=== PATIENT | male | born 1965 | race Caucasian/White ===

== ENCOUNTER 2018-05-19 14:04 | Inpatient (IN) | payer OTHER ==
[2018-05-19] MEDS ORDERED: MORPHINE SULFATE 10 MG/ML INJ IV ONE (14:46)
--- NOTE | 2018-05-19 14:51 | ER Document Report ---
ED Medical Screen (RME) - General Chief Complaint: Finger Injury Stated Complaint: FINGER INJURY Time Seen by Provider: 05/19/18 14:34 Mode of Arrival: Ambulatory Information source: Patient Notes: 53-year-old male presents emergency department for left middle finger evaluation. Patient is one of Dr. Sexton's patients. He states that he injured his finger on a platen grinder and has been seeing Dr. Sexton. Over the last 2 weeks he has been having increased pain. Over the last couple of days the fingers become hot, swollen, and draining serosanguineous material. Dr. Sexton called and would like to know when the patient is in the ED. He requests a CBC, sed rate, and CRP be odered. I have greeted and performed a rapid initial assessment of this patient. A comprehensive ED assessment and evaluation of the patient, analysis of test results and completion of the medical decision making process will be conducted by additional ED providers. PHYSICAL EXAMINATION: GENERAL: Well-appearing, well-nourished and in no acute distress. HEAD: Atraumatic, normocephalic. EYES: Pupils equal round extraocular movements intact, conjunctiva are normal. ENT: Nares patent NECK: Normal range of motion LUNGS: No respiratory distress Musculoskeletal: Normal range of motion. L middle finger erythematous, swollen, warm to touch, and painful to palpation. 2+ radial pulse. NEUROLOGICAL: Normal speech, normal gait. TRAVEL OUTSIDE OF THE [place] IN LAST 30 DAYS: No - Related Data Allergies/Adverse Reactions: No Known Allergies Allergy (Verified 05/19/18 14:05) Physical Exam - Vital signs Vitals: Temp Pulse Resp BP Pulse Ox 97.8 F 60 20 133/66 H 100 05/19/18 14:12 05/19/18 14:12 05/19/18 14:12 05/19/18 14:12 05/19/18 14:12 Course - Vital Signs Vital signs: Temp Pulse Resp BP Pulse Ox 97.8 F 60 20 133/66 H 100 05/19/18 14:12 05/19/18 14:12 05/19/18 14:12 05/19/18 14:12 05/19/18 14:12
[2018-05-19 15:12] LABS: ABSOLUTE BASOPHILS # (AUTO) 0.1 10^3/uL (0.0-0.2); ABSOLUTE EOSINOPHILS # (AUTO) 0.1 10^3/uL (0.0-0.6); ABSOLUTE LYMPHOCYTES (AUTO) 3.9 10^3/uL (0.5-4.7); ABSOLUTE MONOCYTES (AUTO) 0.6 10^3/uL (0.1-1.4); ABSOLUTE NEUT (AUTO) 4.9 10^3/uL (1.7-8.2); BASOPHILS % (AUTO) 1.4 % (0-2); EOSINOPHILS % (AUTO) 1.4 % (0-6); HEMATOCRIT 44.4 % (37.9-51.0); HEMOGLOBIN 15.4 g/dL (13.5-17.0); LYMPHOCYTES % (AUTO) 40.2 % (13-45); MEAN CORPUSCULAR HGB CONC 34.6 g/dL (32.0-36.0); MEAN CORPUSCULAR VOLUME 92 fl (80-97); MONOCYTES % (AUTO) 6.1 % (3-13); PLATELET COUNT 385 10^3/uL (150-450); RED CELL DISTRIBUTION WIDTH 15.4 % (11.5-14.0); SEGMENTED NEUTROPHILS % (AUTO) 50.9 % (42-78); TOTAL CELLS COUNTED % (AUTO) 100 %; WHITE BLOOD COUNT 9.7 10^3/uL (4.0-10.5)
[2018-05-19] MEDS ORDERED: LIDOCAINE 1% INJ (10 MG/ML) 10 ML MDV INJ ONE (15:31)
--- NOTE | 2018-05-19 15:42 | PDOC H&P ---
History of Present Illness Patient complains of: Pain left middle finger History of Present Illness: MUNIRA SULLIVAN is a 53 year old male who sustained a work-related injury to his left middle finger when a stand grinder cut the volar surface of his middle finger. He underwent nerve repair with zone I FDP repair. Patient had been doing well and progressing in occupational therapy appropriately until he developed pain approximately 1 week ago. He then follow-up in the office later that week once again with worsening pain and redness patient was started on p.o. antibiotics but instructed if his pain did not improve to immediately present to the emergency room. Patient presents today and states he has noticed increasing swelling and pain in the digit. He has been taking the Bactrim as recommended. Denies any discomfort in his forearm or palm. Denies fever chills or sweats. Past Surgical History Past Surgical History: Reports: Appendectomy Social History Smoking Status: Current Every Day Smoker Family History Parental Family History Reviewed: No Children Family History Reviewed: No Sibling(s) Family History Reviewed.: No Medication/Allergy Allergies/Adverse Reactions: No Known Allergies Allergy (Verified 05/19/18 14:05) Review of Systems Constitutional: ABSENT: chills, fever(s), headache(s), weight gain, weight loss Eyes: ABSENT: visual disturbances Ears: ABSENT: hearing changes Cardiovascular: ABSENT: chest pain, dyspnea on exertion, edema, orthropnea, palpitations Respiratory: ABSENT: cough, hemoptysis Gastrointestinal: ABSENT: abdominal pain, constipation, diarrhea, hematemesis, hematochezia, nausea, vomiting Genitourinary: ABSENT: dysuria, hematuria Musculoskeletal: PRESENT: as per HPI Integumentary: ABSENT: rash, wounds Neurological: ABSENT: abnormal gait, abnormal speech, confusion, dizziness, focal weakness, syncope Psychiatric: ABSENT: anxiety, depression, homidical ideation, suicidal ideation Endocrine: ABSENT: cold intolerance, heat intolerance, menstrual abnormalities, polydipsia, polyuria Hematologic/Lymphatic: ABSENT: easy bleeding, easy bruising, lymphadenopathy Physical Exam Vital Signs: Temp Pulse Resp BP Pulse Ox 97.8 F 60 20 133/66 H 100 05/19/18 14:12 05/19/18 14:12 05/19/18 14:12 05/19/18 14:12 05/19/18 14:12 Intake & Output 05/18/18 05/19/18 05/20/18 06:59 06:59 06:59 Weight 80.2 kg General appearance: PRESENT: no acute distress, well-developed, well-nourished Head exam: PRESENT: atraumatic, normocephalic Eye exam: PRESENT: conjunctiva pink, EOMI, PERRLA. ABSENT: scleral icterus Ear exam: PRESENT: normal external ear exam Mouth exam: PRESENT: moist, tongue midline Teeth exam: PRESENT: poor dentation Neck exam: PRESENT: full ROM. ABSENT: carotid bruit, JVD, lymphadenopathy, thyromegaly Respiratory exam: PRESENT: unlabored Cardiovascular exam: PRESENT: RRR. ABSENT: diastolic murmur, rubs, systolic murmur Pulses: PRESENT: normal dorsalis pedis pul, +2 pedal pulses bilateral Vascular exam: PRESENT: normal capillary refill GI/Abdominal exam: PRESENT: normal bowel sounds, soft. ABSENT: distended, guarding, mass, organolmegaly, rebound, tenderness Rectal exam: PRESENT: deferred Musculoskeletal exam: PRESENT: other - Left middle finger: Desquamation along the distal aspect of the digit. Exquisite tenderness to palpation on DIP joint with skin breakdown radially. Small amount of purulent drainage noted and expressible. No tenderness along the flexor sheath at the middle phalanx, proximal phalanx or A1 rozina. Flicker of FDP function of the DIP joint. No pain with PIP joint range of motion. Patient lacks two-point discrimination along the distal digit which is unchanged. Cap refill less than 2 seconds. Normal skin turgor. Neurological exam: PRESENT: alert, awake, oriented to person, oriented to place, oriented to time, oriented to situation, CN II-XII grossly intact. ABSENT: motor sensory deficit Psychiatric exam: PRESENT: appropriate affect, normal mood. ABSENT: homicidal ideation, suicidal ideation Skin exam: PRESENT: dry, intact, warm. ABSENT: cyanosis, rash Results Laboratory Results: 05/19/18 14:58 05/19/18 14:58 05/19/18 05/19/18 14:58 14:58 WBC 9.7 RBC 4.80 Hgb 15.4 Hct 44.4 MCV 92 MCH 32.0 MCHC 34.6 RDW 15.4 H Plt Count 385 Seg Neutrophils % 50.9 Lymphocytes % 40.2 Monocytes % 6.1 Eosinophils % 1.4 Basophils % 1.4 Absolute Neutrophils 4.9 Absolute Lymphocytes 3.9 Absolute Monocytes 0.6 Absolute Eosinophils 0.1 Absolute Basophils 0.1 Sodium Cancelled Potassium Cancelled Chloride Cancelled Carbon Dioxide Cancelled Anion Gap Cancelled BUN Cancelled Creatinine Cancelled Est GFR ( Amer) Cancelled Est GFR (Non-Af Amer) Cancelled Glucose Cancelled Calcium Cancelled Total Bilirubin Cancelled AST Cancelled ALT Cancelled Alkaline Phosphatase Cancelled C-Reactive Protein Cancelled Total Protein Cancelled Albumin Cancelled Assessment & Plan - Diagnosis (1) Abscess of finger of left hand Is this a current diagnosis for this admission?: Yes Plan: Unfortunately patient had been seeing improvement after a fairly contaminated wound from a stand grinder injury at work but then has now developed infection with underlying abscess as noted by the active drainage. Given the distal nature of the digit I feel bedside irrigation and debridement can be performed under local anesthesia. Also given an knowing the fact he had significant contamination at the original injury there is certainly the possibility of underlying distal phalanx osteomyelitis but up to this point all radiographs have not demonstrated evidence of lytic lesion however there was questionable cortical irregularity which may be posttraumatic in nature. There is no evidence of flexor tenosynovitis and thus I feel is reasonable to proceed with bedside procedure with nail removal and irrigation and debridement. Risk and benefits of the surgical procedure have been explained to the patient including neurovascular risk, recurrent infection necessitating repeat operative intervention. Patient is verbalized understanding and consented for the surgical procedure. Patient will be admitted for IV antibiotics until clinical improvement is noted.
[2018-05-19] MEDS ORDERED: ONDANSETRON HCL INJ/PF 4 MG/2 ML SDV IV PRN (15:43)
[2018-05-19 15:53] LABS: ERYTHROCYTE SEDIMENTATION RATE 18 mm/hr (0-20)
[2018-05-19] MEDS ORDERED: AMPICILLIN SOD/SULBACTAM 3 GM VIAL IV ONE (16:02)
--- NOTE | 2018-05-19 16:04 | ER Document Report ---
ED General - General Chief Complaint: Finger Injury Stated Complaint: FINGER INJURY Time Seen by Provider: 05/19/18 14:34 Mode of Arrival: Ambulatory Notes: Dr. Sexton's Ortho note: MUNIRA SULLIVAN is a 53 year old male who sustained a work-related injury to his left middle finger when a glaze grinder cut the volar surface of his middle finger. He underwent nerve repair with zone I FDP repair. Patient had been doing well and progressing in occupational therapy appropriately until he developed pain approximately 1 week ago. He then follow-up in the office later that week once again with worsening pain and redness patient was started on p.o. antibiotics but instructed if his pain did not improve to immediately present to the emergency room. Patient presents today and states he has noticed increasing swelling and pain in the digit. He has been taking the Bactrim as recommended. Denies any discomfort in his forearm or palm. Denies fever chills or sweats. My HPI: Patient had already been seen by the [facility] provider. Orthopedics Dr. Sexton had also already seen the patient and put in admission orders. My assessment was on changed from Dr. Sexton's. TRAVEL OUTSIDE OF THE [place] IN LAST 30 DAYS: No - Related Data Allergies/Adverse Reactions: No Known Allergies Allergy (Verified 05/19/18 14:05) Past Medical History - General Information source: Patient - Social History Smoking Status: Current Every Day Smoker Chew tobacco use (# tins/day): No Frequency of alcohol use: None Drug Abuse: None Family History: Reviewed & Not Pertinent Patient has suicidal ideation: No Patient has homicidal ideation: No Renal/ Medical History: Denies: Hx Peritoneal Dialysis Past Surgical History: Reports: Hx Appendectomy Review of Systems - Review of Systems Constitutional: No symptoms reported EENT: No symptoms reported Cardiovascular: No symptoms reported Respiratory: No symptoms reported Gastrointestinal: No symptoms reported Genitourinary: No symptoms reported Male Genitourinary: No symptoms reported Musculoskeletal: See HPI Skin: See HPI Hematologic/Lymphatic: No symptoms reported Neurological/Psychological: No symptoms reported Physical Exam - Vital signs Vitals: Temp Pulse Resp BP Pulse Ox 97.8 F 60 20 133/66 H 100 05/19/18 14:12 05/19/18 14:12 05/19/18 14:12 05/19/18 14:12 05/19/18 14:12 - Notes Notes: GENERAL: Alert, interacts well. No acute distress. HEAD: Normocephalic, atraumatic. EYES: Pupils equal, round, and reactive to light. Extraocular movements intact. ENT: Oral mucosa moist, tongue midline. NECK: Full range of motion. Supple. Trachea midline. LUNGS: Clear to auscultation bilaterally, no wheezes, rales, or rhonchi. No respiratory distress. HEART: Regular rate and rhythm. No murmur ABDOMEN: Soft, non-tender. Non-distended. Bowel sounds present in all 4 quadrants. EXTREMITIES: Moves all 4 extremities spontaneously. No edema, normal radial and dorsalis pedis pulses bilaterally. No cyanosis. Left middle finger: Desquamation along the distal aspect of the digit. tenderness to palpation on DIP joint with skin breakdown radially. Small amount of purulent drainage noted and expressible. Cap refill less than 2 seconds. Normal skin turgor. BACK: no cervical, thoracic, lumbar midline tenderness. No saddle anesthesia, normal distal neurovascular exam. NEUROLOGICAL: Alert and oriented x3. Normal speech. cranial nerves II through XII grossly intact PSYCH: Normal affect, normal mood. SKIN: Warm, dry. Course - Re-evaluation Re-evalutation: Case discussed with orthopedics Dr. Sexton who has already seen the patient in the emergency department and placed admit orders into the computer. Patient admitted to his service for IV antibiotics. Patient is stable for admission. - Vital Signs Vital signs: Temp Pulse Resp BP Pulse Ox 98.0 F 72 18 106/61 94 05/19/18 23:30 05/19/18 23:30 05/19/18 23:30 05/19/18 23:30 05/19/18 23:30 - Laboratory Result Diagrams: 05/20/18 04:38 05/19/18 15:50 Laboratory results interpreted by me: 05/19/18 05/19/18 14:58 15:50 RDW 15.4 H ALT 20 L Discharge - Discharge Clinical Impression: Abscess of finger of left hand Condition: Stable Disposition: ADMITTED INPATIENT Admitting Provider: Orthopedics Dr. Sexton Unit Admitted: Medical Floor
[2018-05-19 16:27] LABS: ALANINE AMINOTRANSFERASE 20 U/L (21-72); ALBUMIN 4.6 g/dL (3.5-5.0); ALKALINE PHOSPHATASE 88 U/L (38-126); ANION GAP 11 (5-19); ASPARTATE AMINO TRANSFERASE 19 U/L (17-59); BILIRUBIN,DIRECT 0.2 mg/dL (0.0-0.4); BILIRUBIN,TOTAL 0.2 mg/dL (0.2-1.3); BLOOD UREA NITROGEN 12 mg/dL (7-20); C-REACTIVE PROTEIN 6.7 mg/L (<10.0); CALCIUM 9.7 mg/dL (8.4-10.2); CARBON DIOXIDE 27 mmol/L (22-30); CHLORIDE 103 mmol/L (98-107); GLUCOSE 104 mg/dL (75-110); POTASSIUM 4.3 mmol/L (3.6-5.0); SODIUM 141.2 mmol/L (137-145); TOTAL PROTEIN 7.6 g/dL (6.3-8.2)
--- NOTE | 2018-05-19 16:58 | Operative Report ---
Operative Report DATE OF SURGERY: 05/19/18 PREOPERATIVE DIAGNOSIS: Abscess left middle finger status post flexor tendon la ceration with repair POSTOPERATIVE DIAGNOSIS: Same OPERATION: Irrigation debridement left middle finger abscess including soft tissue no involvement of bone. SURGEON: BRUNA MCGRAW ANESTHESIA: Local COMPLICATIONS: None ESTIMATED BLOOD LOSS: Minimal PROCEDURE: Indication for above procedure: 53-year-old male who sustained a open wound to the left middle finger from a work-related injury from a drill grinder. Patient sustained FDP laceration along with digital nerve involvement. Patient underwent successful operative procedure and had been doing well until he developed redness swelling and pain. His symptoms worsened over the past 36 hours and thus I directed him to the emergency room. After evaluation and treatment as per H&P decision was made to proceed with bedside irrigation and debridement. Procedure In Detail: Digital block was performed with 1% lidocaine without epinephrine 10 cc once adequately anesthetized hand was prepped with Betadine and draped in a sterile fashion. Digital tourniquet was placed. Patient given IV Unasyn once cultures obtained Open wound along the radial aspect of the DIP joint was then opened and small amounts of purulence were encountered. Cultures obtained. Blunt dissection was performed with a Deer elevator no tracking was noted deep into the joint or into the flexor sheath. No apparent bone involvement. Any nonviable soft tissue was excised. Wound was copiously irrigated with normal saline and Betadine. A Deer elevator was then placed along the nail plate superficially and then deep to the nail plate above the sternal matrix with special care to avoid disruption of the germinal matrix. Nail was then removed. Retained Prolene suture was removed. There is no evidence of purulence sitting within the paronychia. Previous radial wound was once again copiously irrigated with normal saline. elevator was placed above and below the flexor tendon to perform a localized tendon lysis. At completion patient had improved DIP joint range of motion 0 degrees - 20 degrees PIP joint range of motion 0 degrees - 80 degrees. Adaptic was placed beneath the nail fold to avoid adhesions and promote no growth healing. Wet-to-dry dressing was placed along the wound site and a Rich loosely applied. Patient had normal capillary refill once the digital tourniquet was removed. Patient tolerated procedure well.
[2018-05-19] MEDS: OXYCODONE-ACETAMINOPHEN 5-325 MG TABLET PO PRN (17:59)
[2018-05-19] MEDS ORDERED: AMPICILLIN SOD/SULBACTAM 3 GM VIAL IV SCH (18:00)
[2018-05-19] MEDS: MORPHINE SULFATE 10 MG/ML INJ IV PRN (20:51)
[2018-05-19] MEDS: AMPICILLIN SODIUM/SULBACTAM NA 3 GM in NORMAL SALINE 100 ML IV SCH (20:55)
[2018-05-20] MEDS: CIPROFLOXACIN 400 MG/D5W RTU 400 MG/200 ML RTUPB IV SCH ×3 (00:42→21:45)
[2018-05-20] MEDS: OXYCODONE-ACETAMINOPHEN 5-325 MG TABLET PO PRN ×3 (00:43→17:38)
[2018-05-20] MEDS: AMPICILLIN SODIUM/SULBACTAM NA 3 GM in NORMAL SALINE 100 ML IV SCH ×4 (02:11→17:36)
[2018-05-20] MEDS: MORPHINE SULFATE 10 MG/ML INJ IV PRN ×3 (02:16→14:11)
[2018-05-20 04:56] LABS: ABSOLUTE BASOPHILS # (AUTO) 0.1 10^3/uL (0.0-0.2); ABSOLUTE EOSINOPHILS # (AUTO) 0.2 10^3/uL (0.0-0.6); ABSOLUTE LYMPHOCYTES (AUTO) 3.2 10^3/uL (0.5-4.7); ABSOLUTE NEUT (AUTO) 10.3 10^3/uL (1.7-8.2); BASOPHILS % (AUTO) 0.9 % (0-2); EOSINOPHILS % (AUTO) 1.3 % (0-6); HEMATOCRIT 42.8 % (37.9-51.0); HEMOGLOBIN 14.5 g/dL (13.5-17.0); LYMPHOCYTES % (AUTO) 21.4 % (13-45); MEAN CORPUSCULAR HEMOGLOBIN 31.2 pg (27.0-33.4); MEAN CORPUSCULAR HGB CONC 33.8 g/dL (32.0-36.0); MEAN CORPUSCULAR VOLUME 92 fl (80-97); PLATELET COUNT 357 10^3/uL (150-450); RED BLOOD COUNT 4.64 10^6/uL (4.35-5.55); RED CELL DISTRIBUTION WIDTH 15.5 % (11.5-14.0); SEGMENTED NEUTROPHILS % (AUTO) 69.4 % (42-78); TOTAL CELLS COUNTED % (AUTO) 100 %; WHITE BLOOD COUNT 14.8 10^3/uL (4.0-10.5)
[2018-05-20] MEDS: GABAPENTIN 300 MG CAPSULE PO SCH ×3 (09:52→17:38)
[2018-05-20] MEDS: NICOTINE 21 MG/24 HR PATCH.TD24 TD SCH (09:52)
--- NOTE | 2018-05-20 15:25 | PDOC PROGRESS REPORT ---
Subjective Progress Note for:: 05/20/18 Subjective:: Patient states the redness and swelling has improved but still has some soreness. Denies fever chills or sweats. Pain currently controlled. Reason For Visit: ABSCESS LEFT MIDDLE FINGER Physical Exam Vital Signs: Temp Pulse Resp BP Pulse Ox 98.1 F 71 12 113/73 96 05/20/18 11:29 05/20/18 11:29 05/20/18 11:29 05/20/18 11:29 05/20/18 11:29 Intake & Output 05/19/18 05/20/18 05/21/18 06:59 06:59 06:59 Intake Total 622 Balance 622 Weight 79.9 kg Musculoskeletal exam: PRESENT: other - Left middle finger: Dressing change today. Wound along the radial aspect evidence of granulation tissue no active purulent drainage or expressible drainage. No tenderness along the flexor sheath. Cap refill less than 2 seconds normal skin turgor. No streaking erythema. Results Laboratory Results: 05/20/18 04:38 05/19/18 15:50 05/19/18 05/19/18 05/20/18 14:58 15:50 04:38 WBC 14.8 H RBC 4.64 Hgb 14.5 Hct 42.8 MCV 92 MCH 31.2 MCHC 33.8 RDW 15.5 H Plt Count 357 Seg Neutrophils % 69.4 Lymphocytes % 21.4 Monocytes % 7.0 Eosinophils % 1.3 Basophils % 0.9 Absolute Neutrophils 10.3 H Absolute Lymphocytes 3.2 Absolute Monocytes 1.0 Absolute Eosinophils 0.2 Absolute Basophils 0.1 Sodium Cancelled 141.2 Potassium Cancelled 4.3 Chloride Cancelled 103 Carbon Dioxide Cancelled 27 Anion Gap Cancelled 11 BUN Cancelled 12 Creatinine Cancelled 1.03 Est GFR ( Amer) Cancelled > 60 Est GFR (Non-Af Amer) Cancelled > 60 Glucose Cancelled 104 Calcium Cancelled 9.7 Total Bilirubin Cancelled 0.2 AST Cancelled 19 ALT Cancelled 20 L Alkaline Phosphatase Cancelled 88 C-Reactive Protein Cancelled 6.7 Total Protein Cancelled 7.6 Albumin Cancelled 4.6 Assessment & Plan - Diagnosis (1) Abscess of finger of left hand Is this a current diagnosis for this admission?: Yes Plan: Postop day 1 status post bedside irrigation debridement left middle finger 1. Continue Unasyn and Cipro until cultures define possible organism 2. Will begin chlorhexidine soaks 3. Pain control with morphine and Percocet 4. discharge planning patient will likely be discharged home with p.o. antibiotics as long as clinical improvement is noted.
[2018-05-21] MEDS: OXYCODONE-ACETAMINOPHEN 5-325 MG TABLET PO PRN ×3 (00:44→18:01)
[2018-05-21] MEDS: AMPICILLIN SODIUM/SULBACTAM NA 3 GM in NORMAL SALINE 100 ML IV SCH ×2 (00:45→05:12)
[2018-05-21 05:08] LABS: ABSOLUTE BASOPHILS # (AUTO) 0.1 10^3/uL (0.0-0.2); ABSOLUTE EOSINOPHILS # (AUTO) 0.2 10^3/uL (0.0-0.6); ABSOLUTE LYMPHOCYTES (AUTO) 3.7 10^3/uL (0.5-4.7); ABSOLUTE MONOCYTES (AUTO) 0.8 10^3/uL (0.1-1.4); ABSOLUTE NEUT (AUTO) 5.2 10^3/uL (1.7-8.2); BASOPHILS % (AUTO) 1.4 % (0-2); EOSINOPHILS % (AUTO) 1.8 % (0-6); HEMATOCRIT 44.8 % (37.9-51.0); HEMOGLOBIN 15.6 g/dL (13.5-17.0); LYMPHOCYTES % (AUTO) 36.6 % (13-45); MEAN CORPUSCULAR HEMOGLOBIN 31.9 pg (27.0-33.4); MEAN CORPUSCULAR HGB CONC 34.8 g/dL (32.0-36.0); MEAN CORPUSCULAR VOLUME 92 fl (80-97); MONOCYTES % (AUTO) 8.1 % (3-13); PLATELET COUNT 344 10^3/uL (150-450); RED BLOOD COUNT 4.89 10^6/uL (4.35-5.55); RED CELL DISTRIBUTION WIDTH 15.6 % (11.5-14.0); SEGMENTED NEUTROPHILS % (AUTO) 52.1 % (42-78); TOTAL CELLS COUNTED % (AUTO) 100 %
--- NOTE | 2018-05-21 07:38 | PDOC PROGRESS REPORT ---
Subjective Subjective:: Patient states the redness and swelling has improved but still has some soreness. Was able to tolerate Hibiclens soaks this morning. Denies fever chills or sweats. Reason For Visit: ABSCESS LEFT MIDDLE FINGER Physical Exam Vital Signs: Temp Pulse Resp BP Pulse Ox 97.8 F 78 17 125/72 94 05/20/18 23:56 05/20/18 23:56 05/20/18 23:56 05/20/18 23:56 05/20/18 23:56 Intake & Output 05/20/18 05/21/18 05/22/18 06:59 06:59 06:59 Intake Total 622 1590 Balance 622 1590 Weight 79.9 kg 79.6 kg Musculoskeletal exam: PRESENT: other - Left middle finger: Wound along the radial aspect at the level of the DIP joint is evidence of granulation tissue. No active purulent drainage. No expressible drainage. No tenderness along the flexor sheath. Cap refill less than 2 seconds. No pain with passive stretch. Results Laboratory Results: 05/21/18 04:12 05/19/18 15:50 05/21/18 04:12 WBC 10.0 RBC 4.89 Hgb 15.6 Hct 44.8 MCV 92 MCH 31.9 MCHC 34.8 RDW 15.6 H Plt Count 344 Seg Neutrophils % 52.1 Lymphocytes % 36.6 Monocytes % 8.1 Eosinophils % 1.8 Basophils % 1.4 Absolute Neutrophils 5.2 Absolute Lymphocytes 3.7 Absolute Monocytes 0.8 Absolute Eosinophils 0.2 Absolute Basophils 0.1 Assessment & Plan - Diagnosis (1) Abscess of finger of left hand Is this a current diagnosis for this admission?: Yes Plan: Postop day 2 status post bedside irrigation debridement left middle finger 1. We will discontinue Unasyn begin clindamycin and Cipro until cultures define possible organism 2. Will continue twice daily chlorhexidine soaks 3. Pain control with morphine and Percocet 4. discharge planning patient will likely be discharged home with p.o. antibiotics as long as clinical improvement is noted, 05/22/18
[2018-05-21] MEDS: GABAPENTIN 300 MG CAPSULE PO SCH ×3 (09:26→17:43)
[2018-05-21] MEDS: NICOTINE 21 MG/24 HR PATCH.TD24 TD SCH (09:26)
[2018-05-21] MEDS: CIPROFLOXACIN 400 MG/D5W RTU 400 MG/200 ML RTUPB IV SCH ×2 (09:27→21:19)
[2018-05-21] MEDS: CLINDAMYCIN 600 MG/D5W RTU 600 MG/50 ML RTUPB IV SCH ×2 (13:24→22:35)
[2018-05-21] MEDS ORDERED: ONDANSETRON HCL INJ/PF 4 MG/2 ML SDV IV PRN (15:00)
[2018-05-22] MEDS: OXYCODONE-ACETAMINOPHEN 5-325 MG TABLET PO PRN ×2 (00:15→06:33)
[2018-05-22] MEDS: CLINDAMYCIN 600 MG/D5W RTU 600 MG/50 ML RTUPB IV SCH (05:15)
[2018-05-22 05:17] LABS: ABSOLUTE BASOPHILS # (AUTO) 0.1 10^3/uL (0.0-0.2); ABSOLUTE EOSINOPHILS # (AUTO) 0.2 10^3/uL (0.0-0.6); ABSOLUTE LYMPHOCYTES (AUTO) 3.6 10^3/uL (0.5-4.7); ABSOLUTE MONOCYTES (AUTO) 0.9 10^3/uL (0.1-1.4); ABSOLUTE NEUT (AUTO) 4.5 10^3/uL (1.7-8.2); BASOPHILS % (AUTO) 1.4 % (0-2); EOSINOPHILS % (AUTO) 1.8 % (0-6); HEMATOCRIT 47.2 % (37.9-51.0); LYMPHOCYTES % (AUTO) 38.7 % (13-45); MEAN CORPUSCULAR HEMOGLOBIN 31.5 pg (27.0-33.4); MEAN CORPUSCULAR VOLUME 93 fl (80-97); MONOCYTES % (AUTO) 9.4 % (3-13); PLATELET COUNT 245 10^3/uL (150-450); RED BLOOD COUNT 5.09 10^6/uL (4.35-5.55); RED CELL DISTRIBUTION WIDTH 15.3 % (11.5-14.0); SEGMENTED NEUTROPHILS % (AUTO) 48.7 % (42-78); TOTAL CELLS COUNTED % (AUTO) 100 %; WHITE BLOOD COUNT 9.3 10^3/uL (4.0-10.5)
--- NOTE | 2018-05-22 07:32 | PDOC DISCHARGE SUMMARY ---
General - Admit/Disc Date/PCP Admission Date/Primary Care Provider: 05/19/18 16:21 EMY BOWMAN MD Discharge Date: 05/22/18 - Discharge Diagnosis (1) Abscess of finger of left hand Is this a current diagnosis for this admission?: Yes - Additional Information Discharge Diet: As Tolerated Discharge Activity: No Lifting Over 10 Pounds, No Lifting/Push/Pulling Prescriptions: Ciprofloxacin HCl [Cipro 500 mg Tablet] 500 mg PO BID #20 tablet Clindamycin HCl [Cleocin 300 mg Capsule] 300 mg PO TID #21 capsule Oxycodone HCl/Acetaminophen [Percocet 5-325 mg Tablet] 1 tab PO Q6 PRN #25 tab PRN Reason: Home Medications: Gabapentin [Neurontin 300 mg Capsule] 300 mg PO Q8 05/20/18 Sulfamethoxazole/Trimethoprim [Bactrim Ds Tablet] 2 each PO BID 05/20/18 Clindamycin HCl [Cleocin 300 mg Capsule] 300 mg PO TID #21 capsule 05/21/18 Oxycodone HCl/Acetaminophen [Percocet 5-325 mg Tablet] 1 tab PO Q6 PRN #25 tab 05/21/18 Ciprofloxacin HCl [Cipro 500 mg Tablet] 500 mg PO BID #20 tablet 05/22/18 History of Present Illness History of Present Illness: MUNIRA SULLIVAN is a 53 year old male who sustained a work-related injury to his left middle finger when a watch crystal grinder cut the volar surface of his middle finger. He underwent nerve repair with zone I FDP repair. Patient had been doing well and progressing in occupational therapy appropriately until he developed pain approximately 1 week ago. He then follow-up in the office later that week once again with worsening pain and redness patient was started on p.o. antibiotics but instructed if his pain did not improve to immediately present to the emergency room. Patient presents today and states he has noticed increasing swelling and pain in the digit. He has been taking the Bactrim as recommended. Denies any discomfort in his forearm or palm. Denies fever chills or sweats. Hospital Course Hospital Course: On 05/19/18 patient was admitted to orthopedic service with abscess of his left middle finger. Patient underwent thorough bedside irrigation debridement. Patient continued to see improvement throughout his hospital course. Laboratory values normalized on 05/22/18. Microbiology continues to demonstrate no growth. Given patient's clinical improvement throughout his hospital stay decision was made for discharge to home on p.o. antibiotics and continuing soaks. Physical Exam Vital Signs: Temp Pulse Resp BP Pulse Ox 98.0 F 72 18 101/60 93 05/21/18 23:09 05/21/18 23:09 05/21/18 23:09 05/21/18 23:09 05/21/18 23:09 Intake & Output 05/21/18 05/22/18 05/23/18 06:59 06:59 06:59 Intake Total 1590 2154 Balance 1590 2154 Weight 79.6 kg 82.7 kg General appearance: PRESENT: no acute distress, well-developed, well-nourished Head exam: PRESENT: atraumatic, normocephalic Eye exam: PRESENT: conjunctiva pink, EOMI, PERRLA. ABSENT: scleral icterus Ear exam: PRESENT: normal external ear exam Mouth exam: PRESENT: moist, tongue midline Teeth exam: PRESENT: poor dentation Neck exam: PRESENT: full ROM. ABSENT: carotid bruit, JVD, lymphadenopathy, thyromegaly Cardiovascular exam: PRESENT: RRR. ABSENT: diastolic murmur, rubs, systolic murmur Pulses: PRESENT: normal dorsalis pedis pul, +2 pedal pulses bilateral Vascular exam: PRESENT: normal capillary refill GI/Abdominal exam: PRESENT: normal bowel sounds, soft. ABSENT: distended, guarding, mass, organolmegaly, rebound, tenderness Rectal exam: PRESENT: deferred Musculoskeletal exam: PRESENT: other - Left middle finger: Dressing change today. Wound along the radial aspect of the middle finger demonstrates bleeding. No deep tunneling or purulent drainage appreciated. Erythema significantly improved. PIP joint range of motion 0 degrees - 50 degrees. No tenderness on the flexor sheath. Hypoesthesia on the distal tip. Cap refill less than 2 seconds. Normal skin turgor. Neurological exam: PRESENT: alert, awake, oriented to person, oriented to place, oriented to time, oriented to situation, CN II-XII grossly intact. ABSENT: motor sensory deficit Psychiatric exam: PRESENT: appropriate affect, normal mood. ABSENT: homicidal ideation, suicidal ideation Skin exam: PRESENT: dry, intact, warm. ABSENT: cyanosis, rash Results Laboratory Results: 05/22/18 05:02 05/19/18 15:50 05/22/18 05:02 WBC 9.3 RBC 5.09 Hgb 16.0 Hct 47.2 MCV 93 MCH 31.5 MCHC 34.0 RDW 15.3 H Plt Count 245 Seg Neutrophils % 48.7 Lymphocytes % 38.7 Monocytes % 9.4 Eosinophils % 1.8 Basophils % 1.4 Absolute Neutrophils 4.5 Absolute Lymphocytes 3.6 Absolute Monocytes 0.9 Absolute Eosinophils 0.2 Absolute Basophils 0.1 Qualifiers - * PATIENT BEING DISCHARGED WITH ANY OF THE FOLLOWING DIAGNOSIS: No Plan Discharge Plan: Patient progressed appropriately. Patient will be discharged home on clindamycin and Cipro which he has responded to. We will continue chlorhexidine soaks twice daily. Will follow up with us in 5-7 days for recheck and continue occupational therapy on 05/24/18. Patient noticed increased redness swelling drainage temperature greater than 101.5 will contact us. Patient was read by instructions understood above instructions and orthopedic stable for discharge to home.
[2018-05-22 08:09] VITALS: BP 112/77
== END 2018-05-22 10:22 | disposition home or self-care (01) | DRG 581 ==
LOC: ER 14:04 → EH 16:21 → 4S 19:06
PROVIDERS: ADMIT Orthopaedic Surgery; ATTEND Orthopaedic Surgery
PROC: 0JBK0ZZ Excision of Left Hand Subcutaneous Tissue and Fascia, Open Approach (ICD-10-PCS; principal; 2018-05-19)
PROC: 0LN80ZZ Release Left Hand Tendon, Open Approach (ICD-10-PCS; 2018-05-19)
PROC: 0R9X0ZZ Drainage of Left Finger Phalangeal Joint, Open Approach (ICD-10-PCS; 2018-05-19)
PROC: 0HTQXZZ Resection of Finger Nail, External Approach (ICD-10-PCS; 2018-05-19)
DX: L02.512 Cutaneous abscess of left hand (principal); F17.200 Nicotine dependence, unspecified, uncomplicated; W31.89XA Contact with other specified machinery, initial encounter; Y93.89 Activity, other specified; Y99.0 Civilian activity done for income or pay
CPT/HCPCS: 36415; 80053; 85025; 85652; 86140; 87040; 87070; 87077; 87186; 87205; 96374; 99285; J0295; J0744; J2270

== ENCOUNTER 2018-08-17 05:39 | Day surgery (SDC) | payer OTHER ==
[2018-08-17] MEDS ORDERED: ALBUTEROL SULFATE 0.083% NEB 2.5 MG/3 ML AMPUL NEB ONE (06:10)
[2018-08-17 06:29] LABS: HEMATOCRIT 46.8 % (37.9-51.0); HEMOGLOBIN 16.1 g/dL (13.5-17.0); MEAN CORPUSCULAR HEMOGLOBIN 31.2 pg (27.0-33.4); MEAN CORPUSCULAR HGB CONC 34.4 g/dL (32.0-36.0); MEAN CORPUSCULAR VOLUME 91 fl (80-97); PLATELET COUNT 349 10^3/uL (150-450); RED BLOOD COUNT 5.16 10^6/uL (4.35-5.55); RED CELL DISTRIBUTION WIDTH 12.8 % (11.5-14.0); WHITE BLOOD COUNT 11.8 10^3/uL (4.0-10.5)
[2018-08-17] MEDS ORDERED: FENTANYL CITRATE INJ/PF 100 MCG/2 ML AMPUL ONE (06:29)
[2018-08-17] MEDS ORDERED: MIDAZOLAM 2 MG/2 ML INJ ONE (06:29)
[2018-08-17] MEDS ORDERED: PROPOFOL INJ 200 MG/20 ML VIAL IV ONE (06:29)
[2018-08-17] MEDS ORDERED: LIDOCAINE 0.5% INJ-PF (5 MG/ML) 50 ML SDV ONE (06:30)
[2018-08-17 06:33] LABS: APPEARANCE,URINE CLEAR; BILIRUBIN,URINE NEGATIVE (NEGATIVE); COLOR,URINE YELLOW; GLUCOSE, URINE NEGATIVE (NEGATIVE); KETONES,URINE NEGATIVE (NEGATIVE); LEUKOCYTE ESTERASE,URINE NEGATIVE (NEGATIVE); NITRITE,URINE NEGATIVE (NEGATIVE); PROTEIN,URINE NEGATIVE (NEGATIVE); URINE SPECIFIC GRAVITY 1.014; UROBILINOGEN,URINE NEGATIVE mg/dL (<2.0)
--- NOTE | 2018-08-17 06:40 | RADIOLOGY REPORT (SQ) ---
EXAM DESCRIPTION: XR CHEST 1 VIEW COMPLETED DATE/TME: 08/17/2018 00:00 CLINICAL HISTORY: 53 years Male, pre op ASU 1 COMPARISON: None. NUMBER OF VIEWS/TECHNIQUE: 1/AP FINDINGS: Adequate lung volume, clear parenchyma, normal cardiac silhouette, and intact bony thorax. IMPRESSION: No acute cardiopulmonary findings.
[2018-08-17 06:47] LABS: ANION GAP 11 (5-19); BLOOD UREA NITROGEN 14 mg/dL (7-20); CALCIUM 9.6 mg/dL (8.4-10.2); CARBON DIOXIDE 25 mmol/L (22-30); CHLORIDE 103 mmol/L (98-107); GLUCOSE 101 mg/dL (75-110); POTASSIUM 4.5 mmol/L (3.6-5.0); SODIUM 139.4 mmol/L (137-145)
[2018-08-17] MEDS ORDERED: BUPIVACAINE HCL 0.5 % INJ/PF 30 ML SDV ONE (07:07)
[2018-08-17] MEDS ORDERED: LIDOCAINE 1% INJ-PF (10 MG/ML) 30 ML SDV ONE (07:07)
[2018-08-17] MEDS ORDERED: BACITRACIN INJ 50,000 UNIT VIAL ONE (07:07)
[2018-08-17] MEDS ORDERED: RINGERS SOLUTION,LACTATED 1,000 ML IV PRN (07:27)
[2018-08-17] MEDS ORDERED: DIPHENHYDRAMINE HCL 50 MG/ML VIAL IV PRN (07:41)
[2018-08-17] MEDS ORDERED: MORPHINE SULFATE 10 MG/ML INJ IV PRN ×2 (07:41→08:01)
[2018-08-17] MEDS ORDERED: ONDANSETRON HCL INJ/PF 4 MG/2 ML SDV IV PRN ×2 (07:41→08:01)
[2018-08-17] MEDS ORDERED: MEPERIDINE HCL/PF INJ 25 MG/1 ML DISP.SYRIN IV PRN (07:41)
[2018-08-17] MEDS ORDERED: PROMETHAZINE HCL INJ 25 MG/1 ML VIAL IV PRN ×2 (07:41)
[2018-08-17] MEDS ORDERED: FENTANYL CITRATE INJ/PF 100 MCG/2 ML AMPUL IV PRN ×3 (07:41)
[2018-08-17] MEDS ORDERED: CLINDAMYCIN PHOSPHATE INJ 300 MG/2 ML SDV ONE ×2 (07:45→07:46)
[2018-08-17] MEDS ORDERED: HYDROCODONE/ACETAMINOPHEN 5-325 MG TABLET PO PRN (08:01)
--- NOTE | 2018-08-17 08:01 | Operative Report ---
Operative Report DATE OF SURGERY: 08/17/18 PREOPERATIVE DIAGNOSIS: Left Middle Finger Distal Phalanx Osteomyelitis POSTOPERATIVE DIAGNOSIS: Left Middle Finger Distal Phalanx Osteomyelitis OPERATION: Left Middle Finger Distal Interphalangeal Disarticulation SURGEON: BRUNA MCGRAW ANESTHESIA: LMAC COMPLICATIONS: None ESTIMATED BLOOD LOSS: Minimal PROCEDURE: Indication for above procedure: 53-year-old male who sustained a open fracture of his left middle finger. Patient underwent flexor tendon repair. Postop the patient had been doing well but then developed postoperative infection. Underwent irrigation debridement and IV antibiotics. Once again patient had seen significant improvement and return to work full duty until redness swelling and pain recurred. At that point an additional irrigation and debridement was performed along with antibiotics the patient failed to see significant improvement. We then discussed treatment options including operative versus nonoperative intervention. Risks and benefits were explained patient ultimately decided he preferred DIP joint amputation given the osteomyelitis and would not undergo IV antibiotics that would be necessary for healing. Patient verbalized understanding and consented for procedure. Procedure In Detail: Patient was seen and evaluated in the preoperative holding area. The RIGHT upper extremity was initialized and marked. Patient received 2g of Ancef IV for bacterial prophylaxis. Patient was taken back to the operative room where transferred to the operative table. Once they were adequately anesthetized a surgical team debriefing was performed ensuring all instrumentation was available, the surgical procedure was discussed with possible concerns reviewed. A digital block was performed utilizing 10 mL of 1% lidocaine without epinephrine. The upper extremity was prepped with Betadine and draped in a sterile fashion. A timeout was done identifying correct patient, procedure and extremity everyone in attendance agree with this and verbalized no concerns. Digital tourniquet was placed. Transverse volar incision was made along the DIP joint. There was evidence of purulence at this level tracking to the bone consistent with osteomyelitis decision was then made to proceed with amputation. A fishmouth shaped skin incision was made. The distal phalanx was disarticulated. Bone was sent to pathology and microbiology. Wound was copiously irrigated with normal saline. Radial and ulnar neurovascular bundles were identified and resected proximal to the amputation site. Tourniquet was then digital tourniquet was then removed. Any peripheral bleeding was controlled with bipolar cautery into the wound was dry. Wound was closed with interrupted 4-0 nylon suture. Skin edges radial and ulnarly were contoured. Wound was dressed with Xeroform 4 x 4's and a soft dressing. Sponge counts, instrument counts, needle counts counts were correct. Patient was then awoken from anesthesia. Transferred from the operating room table to the operating room stretcher. There was no intraoperative complications patient tolerated procedure well stable to PACU. Postoperative plan: Patient will follow-up as scheduled for wound check. They will call with any questions or concerns.
--- NOTE | 2018-08-17 08:01 | Discharge Summary ---
Discharge Summary (SDC) - Discharge Final Diagnosis: Left middle finger infection Date of Surgery: 08/17/18 Discharge Date: 08/17/18 Condition: Good Treatment or Instructions: Schedule Follow Up w/ Dr. Gilson Sexton @ [facility] for Surgery to be seen in 10-14 days or as scheduled [place]: [place]: [place]: May remove dressing on postop day #3, keep incision covered and dry. Ice and elevate May begin finger range of motion attempting to make full fist. Stool softener of choice when on pain medication. USE OF [id number] IBUPROFEN: Ibuprofen (Advil, Nuprin, Medipren, Motrin IB) is a medication for fever and pain control. In addition, it has anti- inflammatory effects which may be beneficial, especially in the treatment of injuries. It's best to take ibuprofen with food. Persons with ulcer disease or allergy to aspirin should notify their physician of this before taking ibuprofen. Ibuprofen can be given every four to six hours, for a total of four doses daily. Age Pain or fever dose Antiinflammatory dose 6-8 yr 200 mg (1 tab) 200 mg (1 tab) 9-11 yr 200 mg (1 tab) 200-400 mg (1-2 tab) 11-14 yr 200-400 mg (1-2 tab) 400 mg (2 tab) 15-adult 400 mg (2 tab) 600 mg (3 tab) ORAL NARCOTIC MEDICATION: You have been given a prescription for pain control. This medication is a narcotic. It's best taken with food, as nausea can result if taken on an empty stomach. Don't operate machinery or drive within six hours of taking this medication. Do not combine this medicine with alcohol, or with any medication which can cause sedation (such as cold tablets or sleeping pills) unless you get permission from the physician. Narcotics tend to cause constipation. If possible, drink plenty of fluids and eat a diet high in fiber and fruits. Please be aware that prescription narcotics also have the potential for abuse. People become addicted to these medications because of the general sense of wellbeing that they induce. This feeling along with a significant reduction in tension, anxiety, and aggression provides a stimulating seductive quality to these drugs. Once your pain is under control, we encourage you to discard your unused narcotics. Prescriptions: Clindamycin HCl [Cleocin 300 mg Capsule] 300 mg PO TID #21 capsule Hydrocodone/Acetaminophen [[place] 10-325 mg Tablet] 1 tab PO Q6 PRN #25 tablet PRN Reason: Referrals: EMY BOWMAN MD [Primary Care Provider] - Discharge Diet: As Tolerated
[2018-08-17] MEDS ORDERED: HYDROCODONE/ACETAMINOPHEN 5-325 MG TABLET ONE (08:45)
[2018-08-17 10:36] VITALS: BP 111/71
--- NOTE | 2018-08-17 22:35 | EKG REPORT ---
SEVERITY:- BORDERLINE ECG - SINUS RHYTHM PROBABLE LEFT ATRIAL ABNORMALITY : Confirmed by: Therese eDy MD 17-Aug-2018 22:35:04
== END 2018-08-17 09:50 | disposition home or self-care (01) ==
LOC: OROUT 05:39
PROVIDERS: ATTEND Orthopaedic Surgery
DX: M86.142 Other acute osteomyelitis, left hand (principal); B95.7 Other staphylococcus as the cause of diseases classified elsewhere; M79.645 Pain in left finger(s); F17.210 Nicotine dependence, cigarettes, uncomplicated
CPT/HCPCS: 36415; 87070; 85027; 87075; 87077; 80048; 81001; 87186; 71045; 93005; 93010; 94640; 26951; J2250; J3490 ×3; J3010; J2704; 1830; 87205